=== PATIENT | male | born 1990 | race Caucasian/White ===

== ENCOUNTER 2018-09-07 17:03 | Emergency (ER) | payer OTHER ==
[~2018-09-07] VITALS: Ht 182.9 cm; Wt 96.2 kg
[2018-09-07 17:04] VITALS: BP 140/79; Ht 182.9 cm; Wt 96.2 kg
== END 2018-09-07 17:38 | disposition other institution (70) ==
LOC: ED 17:03
DX: S09.8XXA Other specified injuries of head, initial encounter (principal); S00.81XA Abrasion of other part of head, initial encounter; S50.311A Abrasion of right elbow, initial encounter; F11.10 Opioid abuse, uncomplicated; F15.10 Other stimulant abuse, uncomplicated; X58.XXXA Exposure to other specified factors, initial encounter; Y93.89 Activity, other specified; Y92.89 Other specified places as the place of occurrence of the external cause; Y99.8 Other external cause status; M79.89 Other specified soft tissue disorders

== ENCOUNTER 2018-09-07 17:03 | Emergency (ER) | payer OTHER | END 2018-09-07 17:38 | disposition other institution (70) | LOC: ED 17:03 | DX: Z02.89 Encounter for other administrative examinations (principal) ==